=== PATIENT | female | born 1995 | race Caucasian/White ===

== ENCOUNTER 2023-11-03 04:57 | Observation (INO) | payer SELFPAY ==
[2023-11-03] VITALS (11 sets, daily range): BP systolic 96–112; BP diastolic 51–64; PULSE 53–78; TEMP 98.2–98.5
[~2023-11-03] VITALS: Ht 30.5 cm; Wt 68.2 kg
[2023-11-03 05:42] LABS: BASO % 0.5 % (0.0-2.0); EOS # 0.2 K/mm3 (0.0-0.7); EOS % 2.6 % (0.0-4.0); GRAN # 3.5 K/mm3 (1.4-6.5); GRAN % 52.9 % (42.2-75.2); HEMATOCRIT 43.2 % (37.0-47.0); HEMOGLOBIN 14.2 g/dl (12.5-16.0); LYMPH # 2.4 K/mm3 (1.2-3.4); LYMPH % 36.2 % (20.0-51.0); MEAN CELL VOLUME 90 fl (80.0-100.0); MEAN CORPUSCULAR HEMOGLOBIN 30 pg (27-31); MEAN CORPUSCULAR HGB CONC 33 g/dl (33.0-37.0); MONO # 0.5 K/mm3 (0.1-0.6); MONO % 7.5 % (1.7-9.3); PLATELET COUNT 250 K/mm3 (130-400); RED BLOOD COUNT 4.81 M/mm3 (4.10-5.30); REDCELL DISTRIBUTION WIDTH-CV 13.4 % (11.5-14.5)
[2023-11-03 06:05] LABS: ALBUMIN 3.7 gm/dL (3.5-5.0); BILIRUBIN,TOTAL 0.7 mg/dL (0.2-1.2); CALCIUM 9.5 mg/dL (8.4-10.2); CREATININE, serum 0.7 mg/dL (0.57-1.11); POTASSIUM 4.1 mmol/L (3.5-4.5); TOTAL PROTEIN 7.5 gm/dL (6.2-8.1)
--- NOTE | 2023-11-03 11:17 | NUR ---
Patient admitted to room 324 from [facility]. Patient belarusian speaking, interpeter used for admission. Patient reports pain to LUQ, no need for pain medication at this time. Patient can radiate to her back. She denies nausea at this time. She is aware she will be NPO. Dr.Doering weinstein. Will monitor
--- NOTE | 2023-11-03 13:45 | NUR ---
Consent obtained & icg green given. Interpetor line used # [id number] Damon. Questions answered. Patient set up for shower per request
--- NOTE | 2023-11-03 15:41 | NUR ---
Patient independent with shower. Family at her side, awaiting OR.
--- NOTE | 2023-11-03 17:30 | NUR ---
Patient to the OR with Jennifer Pacu nurse. Interperter sevices used
--- NOTE | 2023-11-03 19:13 | NUR ---
Received report from BEATA Gross.
[2023-11-03] MEDS ORDERED: NORCO 325 MG-51 TAB PO (19:52)
--- NOTE | 2023-11-03 21:00 | NUR ---
Patient arrived to the floor from PACU with PACU nurse Jennifer at 2039, alert but drowsy, with mother at bedside, patient is S[place]ANK[place] speaking only, IV infusing well on left AC, LR currently infusing via gravity, call light and personal items within reach, will continue to monitor.
--- NOTE | 2023-11-03 23:26 | NUR ---
Patient woke up and this nurse offered her jello, water and turkey sandwich, denies nausea/vomiting, voiding fine as well, on room air.
[2023-11-04] VITALS (7 sets, daily range): BP systolic 87–95; BP diastolic 46–61; PULSE 64–78; TEMP 98–98.4
== END 2023-11-04 10:00 | disposition home or self-care (01) ==
LOC: COL.ER 04:57 → SURG 08:04 → EDBEDREQ 09:54 → SURG 10:52
PROVIDERS: Personal Emergency Response Attendant; ADMIT Surgery
DX: K80.12 Calculus of gallbladder with acute and chronic cholecystitis without obstruction (principal); Z87.19 Personal history of other diseases of the digestive system
CPT/HCPCS: G0378; J0690; J1100; J1170; J1790; J1885; J2270; J2405; J2543; J2704; J3010; J7030; J7120; Q9967